=== PATIENT | male | born 1995 | race Caucasian/White ===

== ENCOUNTER 2019-03-03 17:51 | Emergency (ER) | payer BC ==
[2019-03-03] MEDS ORDERED: Ondansetron ODT TAB* 4 MG PO ONE (18:49)
[2019-03-03] MEDS ORDERED: Acetaminophen TAB* 325 MG PO ONE (18:49)
[2019-03-03 20:32] LABS: Influenza A Molecular NEGATIVE (Negative); Influenza B Molecular NEGATIVE (Negative)
[2019-03-03 21:49] LABS: Hematocrit 41 % (42-52); Hemoglobin 14.1 g/dL (14.0-18.0); Mean Corpuscular HGB Conc 35 g/dL (31-36); Mean Corpuscular Hemoglobin 30 pg (27-31); Mean Corpuscular Volume 87 fL (80-94); Platelet Count 293 10^3/uL (150-450); Red Blood Count 4.69 10^6 /uL (4.18-5.48); Red Cell Distribution Width 13 % (10-15); White Blood Count 11.6 10^3/uL (3.5-10.8)
--- NOTE | 2019-03-03 22:00 | ED ---
Influenza-Like Illness - HPI Summary HPI Summary: The patient is a 23 y/o M presenting to [facility] with a chief complaint of flu- like symptoms onset this morning. He reports he developed headache, body aches, nausea, vomiting (3x), diarrhea (1x), diffuse abdominal pain, post nasal drip, and fever throughout the day. He denies any cough. Currently, his aching symptoms are rated 7/10 in severity. He notes that he went to urgent care where he was diagnosed with a sinus infection. He also states that people at work are also sick, and he found a tick on his neck approximately two weeks ago. PMHx: asthma, deviated septum with repair. Nonsmoker, occasional EtOH, no substance use. Medications reviewed. Allergies noted. - History of Current Complaint Chief Complaint: EDFluSymptoms Time Seen by Provider: 03/03/19 21:42 Hx Obtained From: Patient Onset/Duration: Lasting Hours, Still Present Severity: Moderate Associated Signs & Symptoms: Fever, Myalgia, Headache, Vomiting - 3x, Diarrhea - 1x - Allergy/Home Medications Allergies/Adverse Reactions: Allergies Allergy/AdvReac Type Severity Reaction Status Date / Time amoxicillin [From Augmentin] Allergy Rash Verified 03/03/19 17:57 clavulanic acid Allergy Rash Verified 03/03/19 17:57 [From Augmentin] PMH/Surg Hx/FS Hx/Imm Hx Endocrine/Hematology History: Denies: Hx Diabetes Respiratory History: Reports: Hx Asthma Sensory History: Reports: Hx Contacts or Glasses Opthamlomology History: Reports: Hx Contacts or Glasses - Surgical History Surgery Procedure, Year, and Place: deviated septum repair - Immunization History Immunizations Up to Date: Yes Infectious Disease History: No Infectious Disease History: Denies: Traveled Outside the [place] in Last 30 Days - Family History Known Family History: Negative: Cardiac Disease, Hypertension - Social History Alcohol Use: Occasionally Hx Substance Use: No Substance Use Type: Reports: None Hx Tobacco Use: No Smoking Status (MU): Never Smoked Tobacco Review of Systems - ROS Summary Review of Systems Summary: No home medications. Positive: Fever Positive: Nasal Discharge - post nasal drip Negative: Cough Positive: Abdominal Pain - diffuse, Vomiting - 3x, Diarrhea - 1x, Nausea Positive: Myalgia - body aches Positive: Headache All Other Systems Reviewed And Are Negative: Yes Physical Exam - Summary Physical Exam Summary: General: Well-developed, Thin but well-nourished male. No acute distress. Mildly ill-appearing HEENT: Normocephalic, Atraumatic. Eyes: Conjuctiva normal, PERRL. Ears: TMs within normal limits. Nares: (-) discharge, (-) erythema. Oropharynx: Clear, mucous membranes moist, (-) exudates. Neck: Soft, FROM, (-) lymphadenopathy, (-) thyromegaly, (-) JVD. Cardiovascular: Normal sinus rhythm, (-) murmur. Lungs: Clear to auscultation bilaterally (-) wheezes, (-) rales, (-) rhonchi. Abdomen: Soft, mild LLQ and suprapubic tenderness, non-distended, (-) organomegaly, normal bowel sounds. Back: (-) CVA tenderness Extremities: No edema. Skin: Warm, dry, (-) rash. Neuro: Alert and oriented x3, no focal deficits. Psychiatric: Mood normal, affect normal. Triage Information Reviewed: Yes Vital Signs On Initial Exam: Initial Vitals Temp Pulse Resp BP Pulse Ox 100.9 F 102 18 133/65 99 03/03/19 17:54 03/03/19 17:54 03/03/19 17:54 03/03/19 17:54 03/03/19 17:54 Vital Signs Reviewed: Yes Procedures - Sedation Patient Received Moderate/Deep Sedation with Procedure: No Diagnostics - Vital Signs Vital Signs Temp Pulse Resp BP Pulse Ox 03/03/19 19:59 99.8 F 94 15 132/65 99 03/03/19 18:51 101.8 F 03/03/19 17:54 100.9 F 102 18 133/65 99 - Laboratory Lab Results: Lab Results 03/03/19 03/03/19 Range/Units 20:06 21:43 WBC 11.6 H (3.5-10.8) 10^3/uL RBC 4.69 (4.18-5.48) 10^6 /uL Hgb 14.1 (14.0-18.0) g/dL Hct 41 L (42-52) % MCV 87 (80-94) fL MCH 30 (27-31) pg MCHC 35 (31-36) g/dL RDW 13 (10-15) % Plt Count 293 (150-450) 10^3/uL MPV 7.0 L (7.4-10.4) fL Influenza A (Rapid) Negative (Negative) Influenza B (Rapid) Negative (Negative) Result Diagrams: 03/03/19 21:43 03/03/19 21:43 Lab Statement: Any lab studies that have been ordered have been reviewed, and results considered in the medical decision making process. Re-Evaluation - Re-Evaluation First Eval Re-Evaluation Time: 00:20 Change: Improved Comment: I have discussed results with the patient and symptoms have improved. Discussed symptoms that warrant immediate return to ED. Flu Symptom Course/Dx - Course Course Of Treatment: 23-year-old male with flulike symptoms. Negative flu swab and rapid strep. Symptoms improved dramatically after IV fluids and Toradol. Patient discharged home. Advised plenty of fluids and rest. Tylenol and ibuprofen. Follow up PCP. Follow-up sooner for any worsening symptoms. - Diagnoses Provider Diagnoses: Flu-like symptoms Discharge ED - Sign-Out/Discharge Documenting (check all that apply): Patient Departure - Patient will be discharged home. - Discharge Plan Condition: Stable Disposition: HOME Patient Education Materials: Viral Syndrome (ED) Referrals: [facility] [Outside] - 3 Days Care [facility] [Outside] - 3 Days Additional Instructions: Please follow up with your primary care physician within three days. Please return to ED for any new or worsening symptoms. - Billing Disposition and Condition Condition: STABLE Disposition: Home - Attestation Statements Document Initiated by Willi: Yes Documenting Scribe: Ashlyn Amin Provider For Whom Willi is Documenting (Include Credential): Dr. Melinda Boggs MD Scribe Attestation: Ashlyn Michelle scribed for Dr. Melinda Boggs MD on 03/04/19 at 0521. Scribe Documentation Reviewed: Yes Provider Attestation: The documentation as recorded by the Ashlyn sung accurately reflects the service I personally performed and the decisions made by me, Dr. Melinda Boggs MD Status of Scribmya Document: Viewed
[2019-03-03 22:08] LABS: Albumin 4.7 g/dL (3.2-5.2); Albumin/Globulin Ratio 2.2 (1-3); BUN/Creatinine Ratio 10.3 (8-20); Calcium 9.6 mg/dL (8.6-10.3); EGFR African American 149.3 (>60); EGFR Non-African American 123.3 (>60); Globulin 2.1 g/dL (2-4); Potassium 3.7 mmol/L (3.5-5.0); Total Bilirubin 1.3 mg/dL (0.2-1.0); Total Protein 6.8 g/dL (6.4-8.9)
[2019-03-03] MEDS ORDERED: Pantoprazole IV* 40 MG IV ONE (23:02)
[2019-03-03] MEDS ORDERED: NS 0.9% 1000 ML** 1,000 ML IV ONE (23:02)
[2019-03-03] MEDS ORDERED: Ketorolac INJ* 30 MG/ML 1 ML VIAL IV PUSH ONE (23:55)
[2019-03-04 00:14] LABS: Urine Appearance Clear; Urine Bilirubin Negative (Negative); Urine Blood Negative (Negative); Urine Color Straw; Urine Glucose Negative (Negative); Urine Ketones Negative (Negative); Urine Nitrite Negative (Negative); Urine Protein Negative (Negative); Urine Specific Gravity 1.005 (1.010-1.030); Urine Urobilinogen Negative (Negative)
[2019-03-04 00:38] VITALS: BP 104/54
[2019-03-05 23:21] LABS: Anaplasma phagocytophilum Negative (Negative); B. miyamotoi PCR, B Negative (Negative); Babesia divergens/MO-1 Negative (Negative); Babesia ducani Negative (Negative); Ehrlichia chaffeensis Negative (Negative); Ehrlichia ewingii/canis Negative (Negative); Ehrlichia muris eauclairensis Negative (Negative)
== END 2019-03-04 00:30 | disposition home or self-care (01) ==
LOC: ED 17:51
DX: R51 Headache (principal); M79.10 Myalgia, unspecified site; R11.2 Nausea with vomiting, unspecified; R19.7 Diarrhea, unspecified; R10.84 Generalized abdominal pain; R50.9 Fever, unspecified; R09.82 Postnasal drip; Z88.1 Allergy status to other antibiotic agents; Z88.0 Allergy status to penicillin
CPT/HCPCS: 36415; 80053; 81003; 85027; 86618; 87798; 96361; 96374; 96375; 99282; A9270-GY; J1885

== ENCOUNTER 2019-03-31 01:39 | Emergency (ER) | payer BC ==
[2019-03-31] MEDS ORDERED: Ondansetron INJ* 2 MG/ML VIAL IV ONE (01:52)
[2019-03-31] MEDS ORDERED: Pantoprazole IV* 40 MG IV ONE (01:52)
[2019-03-31] MEDS: NS 0.9% 1000 ML** 1,000 ML IV ONE ×2 (02:08→03:25)
--- NOTE | 2019-03-31 02:30 | ED ---
Complex/Multi-Sys Presentation - HPI Summary HPI Summary: Patient is a 23 y/o M presenting to [facility] with complaints of abdominal pain, nausea, hematemesis, LINDA, joint pain, and fatigue. Sx onset several hours ago. Patient states that he attempted to take Tylenol and Zofran but vomited up these medications. On triage, pain is rated 9/10. Nothing is noted to aggravate/ alleviate Sx. He notes that he was at [facility] a few weeks ago for similar Sx. Patient states that he was diagnosed with viral syndrome and referred to PCP. PCP prescribed Zofran. Patient states that he ate an omelette, tuna melt, and pasta 03/30/19. Hx of asthma is noted, for which the patient takes albuterol. Augmentin allergy is reported. He notes occasional alcohol usage but denies tobacco and substance usage. PSHx of deviated septum repair reported. - History Of Current Complaint Chief Complaint: EDFluSymptoms Hx Obtained From: Patient Onset/Duration: Lasting Hours, Still Present Timing: Constant, Hours Severity Currently: Severe Location: Pain At: - abdomen Aggravating Factor(s): nothing Alleviating Factor(s): nothing Associated Signs And Symptoms: Positive: Headache, Nausea, Abdominal Pain, Hematemesis, Other - positive - fatigue, joint pain - Allergies/Home Medications Allergies/Adverse Reactions: Allergies Allergy/AdvReac Type Severity Reaction Status Date / Time amoxicillin [From Augmentin] Allergy Rash Verified 03/31/19 01:42 clavulanic acid Allergy Rash Verified 03/31/19 01:42 [From Augmentin] PMH/Surg Hx/FS Hx/Imm Hx Endocrine/Hematology History: Denies: Hx Diabetes Respiratory History: Reports: Hx Asthma Sensory History: Reports: Hx Contacts or Glasses Opthamlomology History: Reports: Hx Contacts or Glasses - Surgical History Surgery Procedure, Year, and Place: deviated septum repair Infectious Disease History: No Infectious Disease History: Denies: Traveled Outside the [place] in Last 30 Days - Family History Known Family History: Negative: Cardiac Disease, Hypertension - Social History Alcohol Use: Occasionally Hx Substance Use: No Substance Use Type: Reports: None Hx Tobacco Use: No Smoking Status (MU): Never Smoked Tobacco Review of Systems Positive: Fatigue Gastrointestinal: Other - hematemesis Positive: Abdominal Pain, Nausea Positive: Arthralgia Positive: Headache All Other Systems Reviewed And Are Negative: Yes Physical Exam - Summary Physical Exam Summary: General: Well-developed, Well-nourished male. Mildly-ill appearing. HEENT: Normocephalic, Atraumatic. Eyes: Conjuctiva normal, PERRL. Ears: TMs within normal limits. Nares: (-) discharge, (-) erythema. Oropharynx: Clear, mucous membranes moist, (-) exudates. Neck: Soft, FROM, (-) lymphadenopathy, (-) thyromegaly, (-) JVD. Cardiovascular: Normal sinus rhythm, (-) murmur. Lungs: Clear to auscultation bilaterally (-) wheezes, (-) rales, (-) rhonchi. Abdomen: Soft, mild diffuse tenderness throughout abdomen, non-distended, (-) organomegaly, normal bowel sounds. Back: (-) CVA tenderness Extremities: No edema. Skin: Warm, dry, (-) rash. Neuro: Alert and oriented x3, no focal deficits. Psychiatric: Mood normal, affect normal. Triage Information Reviewed: Yes Vital Signs On Initial Exam: Initial Vitals Temp Pulse Resp BP Pulse Ox 98.8 F 113 18 102/74 100 03/31/19 01:40 03/31/19 01:40 03/31/19 01:40 03/31/19 01:40 03/31/19 01:40 Vital Signs Reviewed: Yes Procedures - Sedation Patient Received Moderate/Deep Sedation with Procedure: No Diagnostics - Vital Signs Vital Signs Temp Pulse Resp BP Pulse Ox 03/31/19 01:40 98.8 F 113 18 102/74 100 - Laboratory Result Diagrams: 03/31/19 02:55 03/31/19 02:55 Lab Statement: Any lab studies that have been ordered have been reviewed, and results considered in the medical decision making process. Complex Multi-Symp Course/Dx Course Of Treatment: 23 year old male with abd pain and vomiting. patient received fluids, Protonix 40 mg IV, Zofran 4 mg IV. he was still vomiting. then given Reglan 10 mg IV, and Benadryl 50 mg IV. workup demonstrated no significant findings except marijuana in urine tox screen. patient discharged to home after significant improvement in symptoms. follow up with PCP. follow up sooner for any worsening symptoms - Diagnoses Provider Diagnoses: Nausea and vomiting Discharge ED - Sign-Out/Discharge Documenting (check all that apply): Patient Departure - discharge - Discharge Plan Condition: Stable Disposition: HOME Patient Education Materials: Acute Nausea and Vomiting (ED) Referrals: [facility] [Outside] - 3 Days Additional Instructions: PLEASE RETURN TO ED FOR ANY NEW OR CONCERNING SYMPTOMS. PLEASE FOLLOW UP WITH YOUR PRIMARY CARE PHYSICIAN WITHIN THREE DAYS. - Billing Disposition and Condition Condition: STABLE Disposition: Home - Attestation Statements Document Initiated by Willi: Yes Documenting Scribe: STEPH LOPEZ Provider For Whom Willi is Documenting (Include Credential): VALENTIN HILL MD Scribe Attestation: STEPH Michelle, scribed for VALENTIN HILL MD on 03/31/19 at 0528. Scribe Documentation Reviewed: Yes Provider Attestation: The documentation as recorded by the STEPH sung accurately reflects the service I personally performed and the decisions made by me, VALENTIN HILL MD Status of Scribe Document: Viewed
[2019-03-31 03:01] LABS: Influenza A Molecular NEGATIVE (Negative); Influenza B Molecular NEGATIVE (Negative)
[2019-03-31 03:09] LABS: ABS Eosinophils 0.1 10^3/ul (0-0.6); ABS Lymphocytes 0.6 10^3/ul (1.0-4.8); ABS Monocytes 0.7 10^3/ul (0-0.8); ABS Neutrophils 8.6 10^3/ul (1.5-7.7); Eosinophil % 0.7 %; Hematocrit 39 % (42-52); Hemoglobin 13.6 g/dL (14.0-18.0); Lymphocyte % 5.8 %; Mean Corpuscular HGB Conc 35 g/dL (31-36); Mean Corpuscular Hemoglobin 31 pg (27-31); Mean Corpuscular Volume 88 fL (80-94); Mean Platelet Volume 7.4 fL (7.4-10.4); Platelet Count 266 10^3/uL (150-450); Red Blood Count 4.43 10^6 /uL (4.18-5.48); Red Cell Distribution Width 13 % (10-15)
[2019-03-31 03:15] LABS: INR 1.18 (0.82-1.09)
[2019-03-31] MEDS ORDERED: Metoclopramide IV* 5 MG/ML 2 ML VIAL IV ONE (03:16)
[2019-03-31] MEDS ORDERED: diPHENhydraMINE IV* 50 MG/ML 1 ml VIAL (BENADRYL) IM ONE (03:16)
[2019-03-31 03:25] LABS: ALT 12 U/L (7-52); AST 14 U/L (13-39); Albumin 4.2 g/dL (3.2-5.2); Albumin/Globulin Ratio 1.9 (1-3); Alkaline Phosphatase 39 U/L (34-104); Anion Gap 9 mmol/L (2-11); BUN/Creatinine Ratio 24.7 (8-20); Blood Urea Nitrogen 20 mg/dL (6-24); C Reactive Protein 2.44 mg/L (<8.01); CO2 Carbon Dioxide 23 mmol/L (22-32); Calcium 8.9 mg/dL (8.6-10.3); Chloride 105 mmol/L (101-111); EGFR African American 142.9 (>60); EGFR Non-African American 118.1 (>60); Globulin 2.2 g/dL (2-4); Glucose 127 mg/dL (70-100); Potassium 3.4 mmol/L (3.5-5.0); Sodium 137 mmol/L (135-145); Total Protein 6.4 g/dL (6.4-8.9)
[2019-03-31] MEDS ORDERED: diPHENhydraMINE IV* 50 MG/ML 1 ml VIAL (BENADRYL) IV ONE (03:26)
[2019-03-31 03:49] LABS: Urine Appearance Clear; Urine Bilirubin Negative (Negative); Urine Blood Negative (Negative); Urine Color Yellow; Urine Glucose Negative (Negative); Urine Ketones Trace (Negative); Urine Nitrite Negative (Negative); Urine Protein Negative (Negative); Urine Specific Gravity 1.018 (1.010-1.030); Urine Urobilinogen Negative (Negative)
[2019-03-31 04:27] LABS: Urine Benzodiazepine Screen None Detected (None Detect); Urine Opiates Screen None Detected (None Detect)
[2019-03-31 05:13] VITALS: BP 106/55
--- OUTSIDE RECORDS SUMMARY | 2019-04-01 16:12 | XMS REPORT | Continuity of Care Document ---
:1995 External Reference #:[id number] Author Name Primo Man MD (transmitted by agent of provider Radha Swenson) Address [address] [place] [address] [place] [address] Problems Description No Information Available Social History Type Date Description Comments Sex Unknown Tobacco Use Start: Unknown Patient has never smoked Smoking Status Reviewed: 03/05/19 Patient has never smoked Allergies, Adverse Reactions, Alerts Active Allergies Reaction Severity Comments Date Augmentin Hives Moderate 03/05/2019 Medications Active Medications SIG Qnty Indications Ordering Provider Date Zofran take 1 tab every 30tabs R11.2 Primo Man MD 03/05/2019 4mg Tablets 6 hours as needed for vomiting. Fluticasone 2 sprays each 16gm J01.80 Primo Man MD 03/05/2019 Propionate nostril every day 50mcg/Act as needed Suspension Albuterol Sulfate 1-2 puffs every 4 25gm Primo Man MD hours as needed Powder sob Tylenol Extra 1-2 tabs by mouth Unknown Strength every 6 hours as 500mg Tablets needed Immunizations Description No Information Available Vital Signs Date Vital Result Comment 03/05/2019 3:05pm Height 71 inches 5'11" Weight 160.00 lb Heart Rate 78 /min BP Systolic Sitting 107 mmHg BP Diastolic Sitting 60 mmHg Body Temperature 99.1 F O2 % BldC Oximetry 98 % BMI (Body Mass Index) 22.3 kg/m2 Results Description No Information Available Procedures Description No Information Available Medical Devices Description No Information Available Encounters Description No Information Available Assessments Date Code Description Provider 03/05/2019 J01.80 Other acute sinusitis Primo Man MD 03/05/2019 R11.2 Nausea with vomiting, unspecified Primo Man MD 03/05/2019 R50.9 Fever, unspecified Primo Man MD 03/05/2019 A09 Infectious gastroenteritis and colitis, unspecified Primo Man MD 03/05/2019 J45.20 Mild intermittent asthma, uncomplicated Primo Man MD Plan of Treatment 03/05/2019 - Primo Man MDJ01.80 Other acute sinusitisNew Medication: Fluticasone Propionate 50 mcg/Act - 2 sprays each nostril every day as heftjuF19.2 Nausea with vomiting, unspecifiedNew Medication:Zofran 4 mg - take 1 tab every 6 hours as needed for vomiting.Comments:If you don't start to feel better after the next week please give our office a call and we can rule out rarer causes of your fever and joint aches like a full tick borne illness panel.R50.9 Fever, [id number] Infectious gastroenteritis and colitis, diepyilyqbiH30.20 Mild intermittent asthma, uncomplicated Functional Status Description No Information Available Mental Status Description No Information Available Referrals Description No Information Available
== END 2019-03-31 05:05 | disposition home or self-care (01) ==
LOC: ED 01:39
DX: R11.2 Nausea with vomiting, unspecified (principal); J45.909 Unspecified asthma, uncomplicated; Z88.0 Allergy status to penicillin; Z88.1 Allergy status to other antibiotic agents
CPT/HCPCS: 36415; 80053; 80307; 81003; 83605; 83690; 85025; 85610; 86140; 96361; 96374; 96375; 99283; J1200; J2405; J2765